=== PATIENT | female | born 1960 | race Caucasian/White ===

== ENCOUNTER → 2018-08-13 | Outpatient (CLI) | payer OTHER ==
[~2018-08-13] MED LIST: IOHEXOL 350 MG/ML 100 ML (OMNIPAQUE 350) VIAL IV ONE; NS 250 ML (IVPB) BAG IV ONE
--- NOTE | 2018-08-13 12:44 | Diagnostic Imaging Report ---
PROCEDURE: CT abdomen and pelvis with and without contrast. TECHNIQUE: Precontrast acquisitions were acquired through the abdomen and pelvis. Multiple contiguous axial images were obtained through the abdomen and pelvis after the administration of intravenous contrast. INDICATION: Right-sided pain, history of Frazier's esophagus. COMPARISON: There are no prior studies available for comparison. FINDINGS: The liver is homogeneous and not enlarged. There is no focal mass involving the liver, and the biliary tree is not abnormally distended. The gallbladder is surgically absent. The spleen, pancreas, adrenals, kidneys, aorta, and inferior vena cava are unremarkable for an acute abnormality. The stomach is partially filled with fluid and consequently difficult to assess. There are a few fluid-filled segments of small bowel low in the pelvis. This appearance is nonspecific. There is no evidence for a bowel obstruction. There does appear to be a 2.3 x 2.7 cm rounded area of low density in the right adnexa. I am not certain that this is related to a fluid-filled segment of bowel or whether this is a complicated cyst or mass arising from the right ovary. Ultrasound would be recommended for further study. The left ovary and uterus are unremarkable. There is no obvious bladder abnormality evident. The appendix was visualized and is not abnormally thickened. The bone windows show no sign of a fracture or of a destructive lesion. The images through the lung bases reveal that there is a small 1.1 cm noncalcified nodular density near the right hemidiaphragm. This could represent a focal area of atelectasis/scar formation as opposed to a neoplastic mass. If previous exams are available, they would be helpful for comparison. If there are no prior studies, then CT of the chest would be recommended for further evaluation. IMPRESSION: 1. The 2.3 x 2.7 CM rounded area of low density in the right adnexa is of uncertain etiology. Whether this is related to the right ovary or to the bowel is unclear. Considerations and recommendations as above. 2. There is no acute abnormality of the abdomen or pelvis noted otherwise. 3. The nodular density in the right lung base may be secondary to a focal area of atelectasis/scar formation as opposed to a neoplastic nodule. However, unless there are previous studies available to demonstrate that this finding is stable, then CT of the chest would be recommended for further evaluation. Dictated by: Dictated on workstation # [id number]
== END ==
LOC: RAD 10:49
PROVIDERS: ATTEND Nurse Practitioner Family
DX: N85.8 Other specified noninflammatory disorders of uterus (principal); J98.4 Other disorders of lung; Z87.19 Personal history of other diseases of the digestive system
CPT/HCPCS: 74178